=== PATIENT | male | born 1955 | race Caucasian/White ===

== ENCOUNTER 2016-11-21 16:46 | Inpatient (IN) | payer OTHER ==
[~2016-11-21] VITALS: Ht 185.4 cm; Wt 81.2 kg
[~2016-11-21 16:46] MED LIST: ASPI81 PO; ATOR20TA86 PO; CYCL10 PO; DANT100 PO; DSS100 PO; HYDR-309 PO; LEVE500T53 PO; LEVO50TA4 PO; MULT-492 PO; PARO20TA24 PO; PERCT PO; ZOLP10 PO
[2016-11-21 19:13] LABS: BASOPHILS # (AUTO) 0.05 K/uL (0.00-0.20); BASOPHILS % (AUTO) 0.7 % (0.0-2.0); EOSINOPHILS # (AUTO) 0.26 K/uL (0.00-0.70); EOSINOPHILS % (AUTO) 3.32 % (1.0-6.0); HEMATOCRIT 46.4 % (41-53); HEMOGLOBIN 14.9 g/dL (13.5-17.5); LYMPHOCYTES # (AUTO) 2.2 K/uL (1.0-4.8); LYMPHOCYTES % (AUTO) 28.8 % (22.0-44.0); MEAN CORPUSCULAR HEMOGLOBIN 28.9 pg (26.0-34.0); MEAN CORPUSCULAR HGB CONC 32.2 G/dL (31.0-37.0); MEAN CORPUSCULAR VOLUME 90 fL (80-100); MONOCYTES # (AUTO) 0.9 K/uL (0.1-1.0); MONOCYTES % (AUTO) 12.1 % (2.0-9.0); NEUTROPHILS # (AUTO) 4.3 K/uL (1.8-7.7); NEUTROPHILS % (AUTO) 55.1 % (40.0-70.0); PLATELET COUNT (AUTO) 284 K/uL (150-450); RED BLOOD CELL COUNT(AUTO) 5.17 MIL/uL (4.50-5.90); RED CELL DISTRIBUTION WIDTH 15.8 % (11.5-14.5); WHITE BLOOD COUNT (AUTO) 7.7 K/uL (4.5-11.0)
[2016-11-21] MEDS ORDERED: CEFTAROLINE 600 MG/D5W 250 ML IV ONE (19:30)
[2016-11-21 19:34] LABS: ANION GAP 9 mmol/L (8-16); CALCIUM, TOTAL 8.7 mg/dL (8.8-10.5); CARBON DIOXIDE 26 mmol/L (22-29); CHLORIDE 108 mmol/L (98-107); CREATININE 0.71 mg/dL (0.60-1.30); GLOMERULAR FILTR. RATE CALC > 60 mL/min (>60); POTASSIUM 3.5 mmol/L (3.5-5.1); SODIUM SERUM 143 mmol/L (136-145); UREA NITROGEN, BLOOD 16 mg/dL (7-18)
[2016-11-21 19:40] LABS: ALANINE AMINOTRANSFERASE 18 U/L (12-78); ALBUMIN 3.4 g/dL (3.4-5.0); ASPARTATE AMINOTRANSFERASE 17 U/L (15-37); BILIRUBIN,TOTAL 0.2 mg/dL (0.1-1.0); TOTAL PROTEIN, SERUM 7.4 g/dL (6.4-8.2)
[2016-11-21] MEDS ORDERED: SODIUM CHLORIDE 0.9% 250 ML IV ONE (20:39)
[2016-11-21] MEDS ORDERED: MORPHINE SULFATE 4 MG/ML SYRINGE IVP PRN (20:45)
[2016-11-21] MEDS ORDERED: OxyCODONE HCL/ACETAMINOPHEN 5-325 MG TABLET PO PRN (20:45)
[2016-11-21] MEDS ORDERED: ALBUTEROL SULFATE 2.5 MG/0.5 ML NEB SOLUTION NEB PRN (20:45)
[2016-11-21] MEDS ORDERED: IPRATROPIUM BROMIDE 0.5 MG/2.5 ML NEB SOLUTION NEB PRN (20:45)
[2016-11-21] MEDS ORDERED: ZOLPIDEM TARTRATE 5 MG TABLET PO PRN (20:45)
[2016-11-21] MEDS ORDERED: MAGNESIUM HYDROXIDE SUSPENSION 30 ML UDCUP PO PRN (20:45)
[2016-11-21] MEDS ORDERED: BISACODYL 10 MG RECTAL RECTAL SUPPOSITORY PR PRN (20:45)
[2016-11-21] MEDS ORDERED: ONDANSETRON HCL 4 MG/2 ML VIAL IVP PRN (20:45)
[2016-11-21] MEDS ORDERED: ACETAMINOPHEN 325 MG TABLET PO PRN (20:45)
[2016-11-21 21:03] VITALS: BP 115/63
[2016-11-21] MEDS: HEPARIN SODIUM,PORCINE 5,000 UNITS/ML VIAL SQ SCH (21:49)
[2016-11-21] MEDS: LevETIRAcetam 500 MG TABLET PO SCH (21:49)
[2016-11-21] MEDS: ATORVASTATIN CALCIUM 20 MG TABLET PO SCH (21:49)
[2016-11-21] MEDS: DOCUSATE SODIUM 100 MG CAPSULE PO SCH (21:49)
[2016-11-22] MEDS: DANTROLENE SODIUM 25 MG CAPSULE PO SCH ×5 (00:14→21:53)
[2016-11-22] MEDS: CYCLOBENZAPRINE HCL 10 MG TABLET PO SCH ×4 (00:15→21:55)
[2016-11-22 04:46] VITALS: BP 131/53
[2016-11-22] MEDS: LEVOTHYROXINE SODIUM 50 MCG TABLET PO SCH (06:31)
[2016-11-22 06:51] LABS: BASOPHILS % (AUTO) 0.5 % (0.0-2.0); EOSINOPHILS % (AUTO) 2.9 % (1.0-6.0); HEMATOCRIT 42.3 % (41-53); HEMOGLOBIN 13.4 g/dL (13.5-17.5); LYMPHOCYTES % (AUTO) 25.3 % (22.0-44.0); MEAN CORPUSCULAR HEMOGLOBIN 28.5 pg (26.0-34.0); MEAN CORPUSCULAR HGB CONC 31.5 G/dL (31.0-37.0); MEAN CORPUSCULAR VOLUME 90 fL (80-100); MONOCYTES # (AUTO) 0.7 K/uL (0.1-1.0); MONOCYTES % (AUTO) 8.9 % (2.0-9.0); NEUTROPHILS # (AUTO) 4.9 K/uL (1.8-7.7); NEUTROPHILS % (AUTO) 62.4 % (40.0-70.0); PLATELET COUNT (AUTO) 276 K/uL (150-450); RED BLOOD CELL COUNT(AUTO) 4.69 MIL/uL (4.50-5.90); RED CELL DISTRIBUTION WIDTH 15.3 % (11.5-14.5); WHITE BLOOD COUNT (AUTO) 7.9 K/uL (4.5-11.0)
[2016-11-22 07:10] LABS: ALANINE AMINOTRANSFERASE 18 U/L (12-78); ALBUMIN 2.8 g/dL (3.4-5.0); ANION GAP 11 mmol/L (8-16); ASPARTATE AMINOTRANSFERASE 16 U/L (15-37); BILIRUBIN,TOTAL 0.2 mg/dL (0.1-1.0); CARBON DIOXIDE 24 mmol/L (22-29); CHLORIDE 108 mmol/L (98-107); CREATININE 0.69 mg/dL (0.60-1.30); GLOMERULAR FILTR. RATE CALC > 60 mL/min (>60); PHOSPHORUS 3.1 mg/dL (2.5-4.9); POTASSIUM 3.6 mmol/L (3.5-5.1); SODIUM SERUM 143 mmol/L (136-145); TOTAL PROTEIN, SERUM 6.1 g/dL (6.4-8.2); UREA NITROGEN, BLOOD 14 mg/dL (7-18)
[2016-11-22 08:00] VITALS: BP 120/71
[2016-11-22] MEDS ORDERED: CEFTAROLINE 600 MG/D5W 250 ML IV SCH (08:00)
[2016-11-22] MEDS: LevETIRAcetam 500 MG TABLET PO SCH ×2 (08:06→21:55)
[2016-11-22] MEDS: HEPARIN SODIUM,PORCINE 5,000 UNITS/ML VIAL SQ SCH ×2 (08:06→21:56)
[2016-11-22] MEDS: DOCUSATE SODIUM 100 MG CAPSULE PO SCH ×2 (08:06→21:57)
[2016-11-22] MEDS: ASPIRIN 81 MG CHEWABLE TABLET PO SCH (08:07)
[2016-11-22] MEDS: PARoxetine HCL 20 MG TABLET PO SCH (08:08)
[2016-11-22] MEDS: MUPIROCIN CALCIUM 2% 15 GM CREAM TP SCH (12:05)
[2016-11-22] MEDS: CeFAZolin 1 GM/DEXTROSE 50 ML IV SCH ×2 (12:07→17:41)
[2016-11-22] MEDS ORDERED: LORazepam 2 MG/ML VIAL IVP ONE (14:45)
[2016-11-22 21:18] VITALS: BP 107/75
[2016-11-22] MEDS: ATORVASTATIN CALCIUM 20 MG TABLET PO SCH (21:55)
[2016-11-22 23:01] VITALS: BP 103/72
[2016-11-23] MEDS: CeFAZolin 1 GM/DEXTROSE 50 ML IV SCH ×2 (01:17→08:27)
[2016-11-23 04:39] VITALS: BP 108/71
[2016-11-23] MEDS: LEVOTHYROXINE SODIUM 50 MCG TABLET PO SCH (07:22)
[2016-11-23 08:16] VITALS: BP 106/66
[2016-11-23] MEDS: PARoxetine HCL 20 MG TABLET PO SCH (08:27)
[2016-11-23] MEDS: DANTROLENE SODIUM 25 MG CAPSULE PO SCH (08:27)
[2016-11-23] MEDS: DOCUSATE SODIUM 100 MG CAPSULE PO SCH (08:27)
[2016-11-23] MEDS: LevETIRAcetam 500 MG TABLET PO SCH (08:27)
[2016-11-23] MEDS: HEPARIN SODIUM,PORCINE 5,000 UNITS/ML VIAL SQ SCH (08:27)
[2016-11-23] MEDS: ASPIRIN 81 MG CHEWABLE TABLET PO SCH (08:27)
[2016-11-23] MEDS: CYCLOBENZAPRINE HCL 10 MG TABLET PO SCH (08:28)
[2016-11-23] MEDS: MUPIROCIN CALCIUM 2% 15 GM CREAM TP SCH (08:28)
[2016-11-23] MEDS ORDERED: CEPH500 PO (11:14)
[2016-11-23 11:32] VITALS: BP 132/82
== END 2016-11-23 11:45 | disposition home or self-care (01) | DRG 863 ==
LOC: EMS 16:49 → 6N 20:07
PROVIDERS: ADMIT Internal Medicine; ATTEND Internal Medicine
DX: T81.4XXA Infection following a procedure, initial encounter (principal); L03.116 Cellulitis of left lower limb; I69.354 Hemiplegia and hemiparesis following cerebral infarction affecting left non-dominant side; E03.9 Hypothyroidism, unspecified; I10 Essential (primary) hypertension; G40.909 Epilepsy, unspecified, not intractable, without status epilepticus; F32.9 Major depressive disorder, single episode, unspecified; K59.00 Constipation, unspecified; Z79.82 Long term (current) use of aspirin; Z79.899 Other long term (current) drug therapy; Z98.890 Other specified postprocedural states; Y83.8 Other surgical procedures as the cause of abnormal reaction of the patient, or of later complication, without mention of misadventure at the time of the procedure; Y93.89 Activity, other specified; Y99.8 Other external cause status; Y92.89 Other specified places as the place of occurrence of the external cause
CPT/HCPCS: 73718; 73721; 83735; 84100; 87040; 96374; 99285; J0690; J0712; J1644; J2060; J7050

== ENCOUNTER 2017-01-29 05:28 | Inpatient (IN) | payer OTHER ==
[~2017-01-29] VITALS: Ht 185.4 cm; Wt 81.8 kg
[~2017-01-29 05:28] MED LIST changes: +CEPH500 PO
[2017-01-29] MEDS ORDERED: RINGERS SOLUTION,LACTATED 1,000 ML IV ONE ×2 (05:48→06:00)
[2017-01-29] MEDS ORDERED: CeFAZolin 2 GM/DEXTROSE 50 ML IV ONE ×2 (05:48→07:00)
[2017-01-29 06:36] LABS: BASOPHILS # (AUTO) 0.01 K/uL (0.00-0.20); BASOPHILS % (AUTO) 0.1 % (0.0-2.0); EOSINOPHILS # (AUTO) 0.33 K/uL (0.00-0.70); EOSINOPHILS % (AUTO) 2.58 % (1.0-6.0); HEMOGLOBIN 15.3 g/dL (13.5-17.5); LYMPHOCYTES # (AUTO) 2.6 K/uL (1.0-4.8); LYMPHOCYTES % (AUTO) 19.9 % (22.0-44.0); MEAN CORPUSCULAR HEMOGLOBIN 28.6 pg (26.0-34.0); MEAN CORPUSCULAR HGB CONC 31.9 G/dL (31.0-37.0); MEAN CORPUSCULAR VOLUME 90 fL (80-100); MONOCYTES # (AUTO) 0.9 K/uL (0.1-1.0); MONOCYTES % (AUTO) 7.3 % (2.0-9.0); NEUTROPHILS % (AUTO) 70.1 % (40.0-70.0); PLATELET COUNT (AUTO) 227 K/uL (150-450); RED BLOOD CELL COUNT(AUTO) 5.35 MIL/uL (4.50-5.90); RED CELL DISTRIBUTION WIDTH 17.5 % (11.5-14.5)
[2017-01-29 06:39] LABS: RBC MORPHOLOGY COMMENT ABNORMAL RBC MORPH; WHITE BLOOD COUNT (AUTO) 15.5 K/uL (4.5-11.0)
[2017-01-29 06:47] LABS: ANION GAP 7 mmol/L (8-16); CALCIUM, TOTAL 8.4 mg/dL (8.8-10.5); CARBON DIOXIDE 28 mmol/L (22-29); CHLORIDE 107 mmol/L (98-107); CREATININE 0.72 mg/dL (0.60-1.30); GLOMERULAR FILTR. RATE CALC > 60 mL/min (>60); SODIUM SERUM 142 mmol/L (136-145); UREA NITROGEN, BLOOD 14 mg/dL (7-18)
[2017-01-29 06:50] LABS: INR 0.9 (0.9-1.1); PROTHROMBIN TIME 9.5 SEC (9.4-11.6)
[2017-01-29 06:52] LABS: ALANINE AMINOTRANSFERASE 20 U/L (12-78); ALBUMIN 3.4 g/dL (3.4-5.0); ASPARTATE AMINOTRANSFERASE 20 U/L (15-37); BILIRUBIN,TOTAL 0.3 mg/dL (0.1-1.0); TOTAL PROTEIN, SERUM 7.5 g/dL (6.4-8.2)
[2017-01-29] MEDS ORDERED: BUPIVACAINE HCL/PF 0.5% 30 ML VIAL ONE (07:18)
[2017-01-29] MEDS ORDERED: RINGERS SOLUTION,LACTATED 2,000 ML IV ONE (07:18)
[2017-01-29] MEDS ORDERED: GUM MASTIC/STORAX/MSAL/ALCOHOL LIQUID 0.67 ML VIAL TP ONE (07:18)
[2017-01-29] MEDS ORDERED: MUPIROCIN CALCIUM 2% 22 GM OINTMENT ONE (07:18)
[2017-01-29] MEDS ORDERED: BUPIVACAINE LIPOSOME/PF 1.3%-13.3MG/ML SUSPENSION 20 ML VIAL INJ ONE (08:30)
[2017-01-29] MEDS ORDERED: HYDROmorphone 2 MG/ML SYRINGE IVP PRN (10:00)
[2017-01-29] MEDS ORDERED: MEPERIDINE-PF 25 MG/ML SYRINGE IVP PRN (10:00)
[2017-01-29] MEDS: ACETAMINOPHEN 1000 MG/ISO-OSM 100 ML IV SCH ×3 (10:00→22:10)
[2017-01-29] MEDS ORDERED: FentaNYL CITRATE-PF 100 MCG/2 ML VIAL IVP PRN (10:00)
[2017-01-29] MEDS ORDERED: CYCLOBENZAPRINE HCL 10 MG TABLET PO PRN (10:00)
[2017-01-29] MEDS ORDERED: ONDANSETRON HCL 4 MG/2 ML VIAL IVP PRN (10:00)
[2017-01-29 12:00] VITALS: BP 128/79
[2017-01-29] MEDS ORDERED: DEXAMETHASONE SOD PHOS 4 MG/ML VIAL IVP ONE (12:00)
[2017-01-29] MEDS ORDERED: PHENYLEPHRINE HCL 10 MG/ML VIAL IVP ONE (12:00)
[2017-01-29] MEDS ORDERED: MIDAZOLAM HCL 2 MG/2 ML VIAL IVP ONE (12:00)
[2017-01-29] MEDS ORDERED: PROPOFOL 1% 20 ML VIAL IVP ONE (12:00)
[2017-01-29] MEDS ORDERED: NEOSTIGMINE METHYLSULFATE 1 MG/ML 10 ML VIAL IVP ONE (12:00)
[2017-01-29] MEDS ORDERED: LIDOCAINE HCL/PF 2% 5 ML VIAL INJ ONE (12:00)
[2017-01-29] MEDS ORDERED: ONDANSETRON HCL 4 MG/2 ML VIAL IVP ONE (12:00)
[2017-01-29] MEDS ORDERED: GLYCOPYRROLATE 0.2 MG/ML VIAL IM ONE (12:00)
[2017-01-29] MEDS ORDERED: ROCURONIUM BROMIDE 10 MG/ML 5 ML VIAL IVP ONE (12:00)
[2017-01-29] MEDS ORDERED: 0.9% SODIUM CHLORIDE 10 ML VIAL IVP ONE (12:00)
[2017-01-29] MEDS ORDERED: FentaNYL CITRATE-PF 100 MCG/2 ML VIAL IVP ONE (12:00)
[2017-01-29] MEDS ORDERED: KETOROLAC TROMETHAMINE 60 MG/2 ML VIAL IM ONE (12:00)
[2017-01-29] MEDS ORDERED: HYDROmorphone 2 MG/ML SYRINGE IVP ONE (12:00)
[2017-01-29] MEDS ORDERED: SODIUM CHLORIDE 0.9% 1,000 ML IV ONE (13:15)
[2017-01-29] MEDS: CeFAZolin 1 GM/DEXTROSE 50 ML IV SCH ×2 (15:40→23:50)
[2017-01-29 15:44] VITALS: BP 130/83
[2017-01-29] MEDS: HYDROmorphone 2 MG/ML SYRINGE IVP PRN ×2 (15:51→18:29)
[2017-01-29] MEDS: CYCLOBENZAPRINE HCL 10 MG TABLET PO SCH ×2 (15:51→20:45)
[2017-01-29] MEDS ORDERED: DANTROLENE SODIUM 100 MG PO SCH (16:00)
[2017-01-29] MEDS: DANTROLENE SODIUM 25 MG CAPSULE PO SCH ×2 (17:21→20:56)
[2017-01-29 19:34] VITALS: BP 109/68
[2017-01-29] MEDS: LevETIRAcetam 500 MG TABLET PO SCH (20:43)
[2017-01-29] MEDS: ATORVASTATIN CALCIUM 20 MG TABLET PO SCH (20:44)
[2017-01-29] MEDS: ZOLPIDEM TARTRATE 10 MG TABLET PO SCH ×2 (21:00→22:37)
[2017-01-29] MEDS: OXYGEN THERAPY IH SCH (22:11)
[2017-01-29 23:30] VITALS: BP 102/59
[2017-01-30] MEDS: HYDROmorphone 2 MG/ML SYRINGE IVP PRN ×4 (02:29→21:14)
[2017-01-30] MEDS: ACETAMINOPHEN 1000 MG/ISO-OSM 100 ML IV SCH (04:04)
[2017-01-30 04:26] LABS: APPEARANCE,URINE CLOUDY (CLEAR); GLUCOSE, URINE (UA) NEGATIVE (NEGATIVE); KETONES,URINE NEGATIVE (NEGATIVE); LEUKOCYTE ESTERASE ,URINE NEGATIVE (NEGATIVE); OCCULT BLOOD,URINE NEGATIVE (NEGATIVE); PH,URINE 5.5 (5.0-8.0); PROTEIN,URINE NEGATIVE (NEGATIVE)
[2017-01-30 04:58] VITALS: BP 98/52
[2017-01-30 05:04] LABS: RBC,URINE 0-2 /HPF (0-2); SQUAMOUS EPITHELIAL CELL,UR Few /LPF (None Seen); WBC,URINE 0-2 /HPF (0-5)
[2017-01-30] MEDS: LEVOTHYROXINE SODIUM 50 MCG TABLET PO SCH (06:20)
[2017-01-30 06:55] LABS: BASOPHILS % (AUTO) 0.3 % (0.0-2.0); EOSINOPHILS % (AUTO) 0.6 % (1.0-6.0); HEMATOCRIT 39.7 % (41-53); HEMOGLOBIN 12.8 g/dL (13.5-17.5); LYMPHOCYTES # (AUTO) 1.9 K/uL (1.0-4.8); LYMPHOCYTES % (AUTO) 18.6 % (22.0-44.0); MEAN CORPUSCULAR HEMOGLOBIN 28.6 pg (26.0-34.0); MEAN CORPUSCULAR HGB CONC 32.2 G/dL (31.0-37.0); MEAN CORPUSCULAR VOLUME 89 fL (80-100); MONOCYTES % (AUTO) 9.7 % (2.0-9.0); NEUTROPHILS # (AUTO) 7.3 K/uL (1.8-7.7); NEUTROPHILS % (AUTO) 70.8 % (40.0-70.0); PLATELET COUNT (AUTO) 245 K/uL (150-450); RED BLOOD CELL COUNT(AUTO) 4.47 MIL/uL (4.50-5.90); RED CELL DISTRIBUTION WIDTH 17.2 % (11.5-14.5); WHITE BLOOD COUNT (AUTO) 10.4 K/uL (4.5-11.0)
[2017-01-30] MEDS: OXYGEN THERAPY IH SCH ×2 (08:00→20:00)
[2017-01-30 08:10] VITALS: BP 107/63
[2017-01-30] MEDS: LevETIRAcetam 500 MG TABLET PO SCH ×2 (08:32→20:54)
[2017-01-30] MEDS: ASPIRIN 81 MG CHEWABLE TABLET PO SCH (08:32)
[2017-01-30] MEDS: OxyCODONE HCL/ACETAMINOPHEN 5-325 MG TABLET PO PRN ×3 (08:32→17:44)
[2017-01-30] MEDS: DANTROLENE SODIUM 25 MG CAPSULE PO SCH ×4 (08:33→20:55)
[2017-01-30] MEDS: PARoxetine HCL 20 MG TABLET PO SCH (08:33)
[2017-01-30 09:41] LABS: RBC MORPHOLOGY COMMENT ABNORMAL RBC MORPH
[2017-01-30] MEDS: CYCLOBENZAPRINE HCL 10 MG TABLET PO SCH ×3 (10:16→20:55)
[2017-01-30 11:07] VITALS: BP 122/67
[2017-01-30 16:25] VITALS: BP 110/67
[2017-01-30] MEDS ORDERED: BENZOCAINE/MENTHOL LOZENGE [8 LOZENGES/PACKET] PO PRN (18:15)
[2017-01-30] MEDS: ATORVASTATIN CALCIUM 20 MG TABLET PO SCH (20:54)
[2017-01-30 21:21] VITALS: BP 124/86
[2017-01-30] MEDS: ZOLPIDEM TARTRATE 10 MG TABLET PO SCH (23:04)
[2017-01-31] MEDS: HYDROmorphone 2 MG/ML SYRINGE IVP PRN (00:54)
[2017-01-31 01:15] VITALS: BP 96/59
[2017-01-31] MEDS: OxyCODONE HCL/ACETAMINOPHEN 5-325 MG TABLET PO PRN ×4 (02:47→16:24)
[2017-01-31 03:56] VITALS: BP 113/60
[2017-01-31] MEDS: LEVOTHYROXINE SODIUM 50 MCG TABLET PO SCH (06:32)
[2017-01-31 07:30] VITALS: BP 106/68
[2017-01-31] MEDS: LevETIRAcetam 500 MG TABLET PO SCH (07:59)
[2017-01-31] MEDS: DANTROLENE SODIUM 25 MG CAPSULE PO SCH (07:59)
[2017-01-31] MEDS: PARoxetine HCL 20 MG TABLET PO SCH (07:59)
[2017-01-31] MEDS: ASPIRIN 81 MG CHEWABLE TABLET PO SCH (07:59)
[2017-01-31] MEDS: CYCLOBENZAPRINE HCL 10 MG TABLET PO SCH ×2 (07:59→12:10)
[2017-01-31] MEDS ORDERED: SULFAMETHOX/TRIMETH DS 800-160 MG/TABLET PO SCH ×2 (08:30→09:00)
[2017-01-31] MEDS: OXYGEN THERAPY IH SCH (09:31)
[2017-01-31 11:30] VITALS: BP 102/67
[2017-01-31] MEDS: DANTROLENE SODIUM 100 MG PO SCH ×2 (12:10→16:04)
[2017-01-31 13:18] VITALS: BP 99/64
[2017-01-31] MEDS ORDERED: SENNA 187 MG TABLET PO PRN (15:00)
[2017-01-31] MEDS ORDERED: DOCUSATE SODIUM 100 MG CAPSULE PO PRN (15:00)
[2017-01-31 15:30] VITALS: BP 111/80
[2017-01-31] MEDS: BISACODYL 5 MG EC TABLET PO PRN ×2 (16:04→16:10)
[2017-01-31 16:36] LABS: BASOPHILS % (AUTO) 0.3 % (0.0-2.0); EOSINOPHILS % (AUTO) 0.8 % (1.0-6.0); HEMATOCRIT 41.3 % (41-53); HEMOGLOBIN 12.9 g/dL (13.5-17.5); LYMPHOCYTES # (AUTO) 1.9 K/uL (1.0-4.8); LYMPHOCYTES % (AUTO) 18.1 % (22.0-44.0); MEAN CORPUSCULAR HEMOGLOBIN 28.3 pg (26.0-34.0); MEAN CORPUSCULAR HGB CONC 31.1 G/dL (31.0-37.0); MEAN CORPUSCULAR VOLUME 91 fL (80-100); MONOCYTES # (AUTO) 0.4 K/uL (0.1-1.0); MONOCYTES % (AUTO) 3.6 % (2.0-9.0); NEUTROPHILS # (AUTO) 8.2 K/uL (1.8-7.7); NEUTROPHILS % (AUTO) 77.2 % (40.0-70.0); PLATELET COUNT (AUTO) 243 K/uL (150-450); RED BLOOD CELL COUNT(AUTO) 4.54 MIL/uL (4.50-5.90); RED CELL DISTRIBUTION WIDTH 18.7 % (11.5-14.5); WHITE BLOOD COUNT (AUTO) 10.6 K/uL (4.5-11.0)
[2017-01-31 16:46] LABS: RBC MORPHOLOGY COMMENT ABNORMAL RBC MORPH
[2017-01-31] MEDS ORDERED: DSS100 PO (18:27)
[2017-01-31] MEDS ORDERED: BISA5TAB12 PO (18:27)
[2017-01-31] MEDS ORDERED: CYCL10 PO (18:27)
[2017-03-23] MEDS ORDERED: CALC-261 PO (11:10)
== END 2017-01-31 19:10 | disposition home or self-care (01) | DRG 481 ==
LOC: 4E 05:28 → OBSVTOIN 05:28
PROVIDERS: ADMIT Orthopaedic Surgery; ATTEND Orthopaedic Surgery
PROC: 0SBB0ZZ Excision of Left Hip Joint, Open Approach (ICD-10-PCS; 2017-01-29)
PROC: 0SND0ZZ Release Left Knee Joint, Open Approach (ICD-10-PCS; 2017-01-29)
PROC: 01BD0ZZ Excision of Femoral Nerve, Open Approach (ICD-10-PCS; 2017-01-29)
PROC: 0J8M0ZZ Division of Left Upper Leg Subcutaneous Tissue and Fascia, Open Approach (ICD-10-PCS; 2017-01-29)
PROC: 0K8 Muscles, Division (ICD-10-PCS; 2017-01-29)
PROC: 0SNB0ZZ Release Left Hip Joint, Open Approach (ICD-10-PCS; 2017-01-29)
PROC: 2W3MX1Z Immobilization of Left Lower Extremity using Splint (ICD-10-PCS; 2017-01-29)
PROC: 0SBD0ZZ Excision of Left Knee Joint, Open Approach (ICD-10-PCS; principal; 2017-01-29 07:30)
DX: M21.962 Unspecified acquired deformity of left lower leg (principal); I69.354 Hemiplegia and hemiparesis following cerebral infarction affecting left non-dominant side; M21.952 Unspecified acquired deformity of left thigh; E03.9 Hypothyroidism, unspecified; E78.5 Hyperlipidemia, unspecified; K59.00 Constipation, unspecified; F32.9 Major depressive disorder, single episode, unspecified; G40.909 Epilepsy, unspecified, not intractable, without status epilepticus; I10 Essential (primary) hypertension; Z79.899 Other long term (current) drug therapy; Z87.891 Personal history of nicotine dependence
CPT/HCPCS: 36415; 80053; 85025; 85610; 85730; 87081; 93005; C9290; J0131; J0690; J1170; J3490; J7120; Z7506; Z7508; 97116; 97163; 97166; 97530; J1100; J1885; J2250; J2370; J2405; J2704; J3010

== ENCOUNTER 2017-01-31 19:00 | Inpatient (IN) | payer OTHER ==
[~2017-01-31] VITALS: Ht 185.4 cm; Wt 80.4 kg
[~2017-01-31 19:00] MED LIST changes: +BISA5TAB12 PO; -CEPH500 PO
[2017-01-31 20:00] VITALS: BP 126/77
[2017-01-31] MEDS ORDERED: TEMAZEPAM 15 MG CAPSULE PO PRN (20:00)
[2017-01-31] MEDS ORDERED: CYCLOBENZAPRINE HCL 10 MG TABLET PO PRN (20:15)
[2017-01-31] MEDS: CYCLOBENZAPRINE HCL 10 MG TABLET PO SCH (20:44)
[2017-01-31] MEDS: LevETIRAcetam 500 MG TABLET PO SCH (20:44)
[2017-01-31] MEDS: ATORVASTATIN CALCIUM 20 MG TABLET PO SCH (20:44)
[2017-01-31] MEDS: DANTROLENE SODIUM 100 MG PO SCH (20:44)
[2017-01-31] MEDS: OxyCODONE HCL/ACETAMINOPHEN 5-325 MG TABLET PO PRN (20:45)
[2017-01-31] MEDS: SULFAMETHOX/TRIMETH DS 800-160 MG/TABLET PO SCH (20:46)
[2017-01-31] MEDS: DOCUSATE SODIUM 100 MG CAPSULE PO SCH (20:51)
[2017-01-31] MEDS: SENNA 187 MG TABLET PO SCH (20:51)
[2017-01-31] MEDS ORDERED: ZOLPIDEM TARTRATE 10 MG TABLET PO SCH (21:00)
[2017-01-31] MEDS ORDERED: ZOLPIDEM TARTRATE 5 MG TABLET PO SCH (21:00)
[2017-01-31] MEDS: BENZOCAINE/MENTHOL LOZENGE [8 LOZENGES/PACKET] PO PRN (21:09)
[2017-01-31 22:12] LABS: APPEARANCE,URINE CLEAR (CLEAR); GLUCOSE, URINE (UA) NEGATIVE (NEGATIVE); KETONES,URINE TRACE mg/dL (NEGATIVE); LEUKOCYTE ESTERASE ,URINE NEGATIVE (NEGATIVE); PROTEIN,URINE NEGATIVE (NEGATIVE)
[2017-01-31 22:13] LABS: OCCULT BLOOD,URINE SMALL (NEGATIVE)
[2017-01-31 22:14] LABS: ADD UA MICROSCOPIC YES; WBC,URINE 0-2 /HPF (0-5)
[2017-02-01 04:25] VITALS: BP 143/90
[2017-02-01] MEDS: OxyCODONE HCL/ACETAMINOPHEN 5-325 MG TABLET PO PRN ×4 (04:25→19:52)
[2017-02-01] MEDS: LEVOTHYROXINE SODIUM 50 MCG TABLET PO SCH (06:08)
[2017-02-01 06:38] LABS: BASOPHILS # (AUTO) 0.02 K/uL (0.00-0.20); BASOPHILS % (AUTO) 0.2 % (0.0-2.0); EOSINOPHILS # (AUTO) 0.17 K/uL (0.00-0.70); EOSINOPHILS % (AUTO) 1.83 % (1.0-6.0); HEMATOCRIT 40.2 % (41-53); HEMOGLOBIN 13.2 g/dL (13.5-17.5); LYMPHOCYTES # (AUTO) 1.4 K/uL (1.0-4.8); LYMPHOCYTES % (AUTO) 14.2 % (22.0-44.0); MEAN CORPUSCULAR HEMOGLOBIN 29.2 pg (26.0-34.0); MEAN CORPUSCULAR HGB CONC 32.7 G/dL (31.0-37.0); MEAN CORPUSCULAR VOLUME 89 fL (80-100); MONOCYTES # (AUTO) 0.8 K/uL (0.1-1.0); MONOCYTES % (AUTO) 8.5 % (2.0-9.0); NEUTROPHILS # (AUTO) 7.2 K/uL (1.8-7.7); NEUTROPHILS % (AUTO) 75.3 % (40.0-70.0); PLATELET COUNT (AUTO) 238 K/uL (150-450); RED BLOOD CELL COUNT(AUTO) 4.51 MIL/uL (4.50-5.90); RED CELL DISTRIBUTION WIDTH 17.6 % (11.5-14.5); WHITE BLOOD COUNT (AUTO) 9.6 K/uL (4.5-11.0)
[2017-02-01 06:55] LABS: ALANINE AMINOTRANSFERASE 12 U/L (12-78); ALBUMIN 2.4 g/dL (3.4-5.0); ANION GAP 9 mmol/L (8-16); ASPARTATE AMINOTRANSFERASE 26 U/L (15-37); BILIRUBIN,TOTAL 0.4 mg/dL (0.1-1.0); CALCIUM, TOTAL 7.9 mg/dL (8.8-10.5); CARBON DIOXIDE 26 mmol/L (22-29); CHLORIDE 104 mmol/L (98-107); CREATININE 0.63 mg/dL (0.60-1.30); GLOMERULAR FILTR. RATE CALC > 60 mL/min (>60); POTASSIUM 3.8 mmol/L (3.5-5.1); SODIUM SERUM 139 mmol/L (136-145); TOTAL PROTEIN, SERUM 6.4 g/dL (6.4-8.2); UREA NITROGEN, BLOOD 11 mg/dL (7-18)
[2017-02-01 07:45] VITALS: BP 117/80
[2017-02-01 07:55] VITALS: BP 117/80
[2017-02-01] MEDS: BENZOCAINE/MENTHOL LOZENGE [8 LOZENGES/PACKET] PO PRN (08:49)
[2017-02-01] MEDS: DOCUSATE SODIUM 100 MG CAPSULE PO SCH ×3 (09:00→20:54)
[2017-02-01] MEDS: PARoxetine HCL 20 MG TABLET PO SCH (09:41)
[2017-02-01] MEDS: GuaiFENesin [SUGAR-FREE] 200 MG/10 ML SOLUTION UDCUP PO PRN ×2 (09:41→19:56)
[2017-02-01] MEDS: SULFAMETHOX/TRIMETH DS 800-160 MG/TABLET PO SCH ×2 (09:41→20:52)
[2017-02-01] MEDS: LevETIRAcetam 500 MG TABLET PO SCH ×2 (09:41→20:53)
[2017-02-01] MEDS: ASPIRIN 81 MG CHEWABLE TABLET PO SCH (09:42)
[2017-02-01] MEDS: CYCLOBENZAPRINE HCL 10 MG TABLET PO SCH ×3 (09:42→20:52)
[2017-02-01] MEDS: DANTROLENE SODIUM 100 MG PO SCH ×4 (09:42→20:52)
[2017-02-01 10:15] LABS: RBC MORPHOLOGY COMMENT ABNORMAL RBC MORPH
[2017-02-01] MEDS: PHENOL 1.4% 177 ML SPRAY BOTTLE PO PRN ×2 (15:09→19:52)
[2017-02-01] MEDS: ACETAMINOPHEN 325 MG TABLET PO PRN (16:40)
[2017-02-01 19:52] VITALS: BP 115/68
[2017-02-01] MEDS: ATORVASTATIN CALCIUM 20 MG TABLET PO SCH (20:52)
[2017-02-01] MEDS: DiphenhydrAMINE HCL 50 MG CAPSULE PO SCH ×2 (20:53→22:17)
[2017-02-01] MEDS: SENNA 187 MG TABLET PO SCH (20:54)
[2017-02-01 23:36] VITALS: BP 115/72
[2017-02-01] MEDS ORDERED: ZOLPIDEM TARTRATE 10 MG TABLET PO PRN (23:45)
[2017-02-01] MEDS: ZOLPIDEM TARTRATE 5 MG TABLET PO PRN (23:58)
[2017-02-02] MEDS: OxyCODONE HCL/ACETAMINOPHEN 5-325 MG TABLET PO PRN ×5 (00:41→21:09)
[2017-02-02] MEDS: PHENOL 1.4% 177 ML SPRAY BOTTLE PO PRN ×2 (04:34→18:28)
[2017-02-02] MEDS: LEVOTHYROXINE SODIUM 50 MCG TABLET PO SCH (06:01)
[2017-02-02 07:15] VITALS: BP 107/73
[2017-02-02] MEDS: LevETIRAcetam 500 MG TABLET PO SCH ×2 (08:03→21:05)
[2017-02-02] MEDS: CYCLOBENZAPRINE HCL 10 MG TABLET PO SCH ×3 (08:03→21:05)
[2017-02-02] MEDS: DANTROLENE SODIUM 100 MG PO SCH ×4 (08:03→21:01)
[2017-02-02] MEDS: PARoxetine HCL 20 MG TABLET PO SCH (08:03)
[2017-02-02] MEDS: SULFAMETHOX/TRIMETH DS 800-160 MG/TABLET PO SCH ×2 (08:03→21:05)
[2017-02-02] MEDS: ASPIRIN 81 MG CHEWABLE TABLET PO SCH (08:03)
[2017-02-02] MEDS: DOCUSATE SODIUM 100 MG CAPSULE PO SCH ×2 (08:04→21:05)
[2017-02-02 13:20] VITALS: BP 122/78
[2017-02-02 16:40] VITALS: BP 117/76
[2017-02-02] MEDS: ACETAMINOPHEN 325 MG TABLET PO PRN (16:49)
[2017-02-02] MEDS: POLYETHYLENE GLYCOL 3350 17 GM PACKET PO SCH (20:59)
[2017-02-02] MEDS: SENNA 187 MG TABLET PO SCH (21:00)
[2017-02-02] MEDS: ATORVASTATIN CALCIUM 20 MG TABLET PO SCH (21:01)
[2017-02-02] MEDS: DiphenhydrAMINE HCL 50 MG CAPSULE PO SCH (22:11)
[2017-02-03 00:10] VITALS: BP 118/82
[2017-02-03] MEDS: PHENOL 1.4% 177 ML SPRAY BOTTLE PO PRN ×2 (00:10→18:39)
[2017-02-03] MEDS: OxyCODONE HCL/ACETAMINOPHEN 5-325 MG TABLET PO PRN ×5 (00:10→21:11)
[2017-02-03] MEDS: GuaiFENesin [SUGAR-FREE] 200 MG/10 ML SOLUTION UDCUP PO PRN (00:19)
[2017-02-03] MEDS: CETIRIZINE HCL 10 MG TABLET PO PRN (00:19)
[2017-02-03] MEDS: LEVOTHYROXINE SODIUM 50 MCG TABLET PO SCH (05:40)
[2017-02-03 07:30] VITALS: BP 105/65
[2017-02-03] MEDS: POLYETHYLENE GLYCOL 3350 17 GM PACKET PO SCH ×2 (08:06→21:11)
[2017-02-03] MEDS: DOCUSATE SODIUM 100 MG CAPSULE PO SCH ×2 (08:06→21:11)
[2017-02-03] MEDS: SULFAMETHOX/TRIMETH DS 800-160 MG/TABLET PO SCH ×2 (08:06→21:11)
[2017-02-03] MEDS: PARoxetine HCL 20 MG TABLET PO SCH (08:06)
[2017-02-03] MEDS: LevETIRAcetam 500 MG TABLET PO SCH ×2 (08:07→21:11)
[2017-02-03] MEDS: ASPIRIN 81 MG CHEWABLE TABLET PO SCH (08:07)
[2017-02-03] MEDS: DANTROLENE SODIUM 100 MG PO SCH ×4 (08:07→21:11)
[2017-02-03] MEDS: CYCLOBENZAPRINE HCL 10 MG TABLET PO SCH ×3 (08:07→21:11)
[2017-02-03 15:50] VITALS: BP 117/74
[2017-02-03] MEDS: SENNA 187 MG TABLET PO SCH (21:00)
[2017-02-03] MEDS: ATORVASTATIN CALCIUM 20 MG TABLET PO SCH (21:11)
[2017-02-03] MEDS: DiphenhydrAMINE HCL 50 MG CAPSULE PO SCH (21:11)
[2017-02-03] MEDS: BENZOCAINE/MENTHOL LOZENGE [8 LOZENGES/PACKET] PO PRN (21:25)
[2017-02-03] MEDS: ZOLPIDEM TARTRATE 5 MG TABLET PO PRN (22:58)
[2017-02-03 23:03] VITALS: BP 105/59
[2017-02-04] MEDS: OxyCODONE HCL/ACETAMINOPHEN 5-325 MG TABLET PO PRN ×3 (00:13→21:39)
[2017-02-04] MEDS: LEVOTHYROXINE SODIUM 50 MCG TABLET PO SCH (06:33)
[2017-02-04 07:15] VITALS: BP 113/70
[2017-02-04] MEDS: DOCUSATE SODIUM 100 MG CAPSULE PO SCH ×2 (09:01→20:22)
[2017-02-04] MEDS: ASPIRIN 81 MG CHEWABLE TABLET PO SCH (09:01)
[2017-02-04] MEDS: PARoxetine HCL 20 MG TABLET PO SCH (09:01)
[2017-02-04] MEDS: SULFAMETHOX/TRIMETH DS 800-160 MG/TABLET PO SCH ×2 (09:01→20:22)
[2017-02-04] MEDS: LevETIRAcetam 500 MG TABLET PO SCH ×2 (09:02→20:22)
[2017-02-04] MEDS: CYCLOBENZAPRINE HCL 10 MG TABLET PO SCH ×3 (09:02→20:23)
[2017-02-04] MEDS: POLYETHYLENE GLYCOL 3350 17 GM PACKET PO SCH ×2 (09:03→20:22)
[2017-02-04] MEDS: DANTROLENE SODIUM 100 MG PO SCH ×4 (09:03→20:22)
[2017-02-04] MEDS: PHENOL 1.4% 177 ML SPRAY BOTTLE PO PRN ×2 (09:12→21:39)
[2017-02-04] MEDS: CETIRIZINE HCL 10 MG TABLET PO PRN (09:12)
[2017-02-04] MEDS: DOCUSATE SODIUM 283 MG/5 ML MINI-ENEMA PR PRN (12:40)
[2017-02-04 13:30] VITALS: BP 120/73
[2017-02-04] MEDS: BENZOCAINE/MENTHOL LOZENGE [8 LOZENGES/PACKET] PO PRN ×2 (14:00→19:43)
[2017-02-04 15:46] VITALS: BP 107/68
[2017-02-04] MEDS: GuaiFENesin [SUGAR-FREE] 200 MG/10 ML SOLUTION UDCUP PO PRN (19:39)
[2017-02-04] MEDS: ATORVASTATIN CALCIUM 20 MG TABLET PO SCH (20:21)
[2017-02-04] MEDS: SENNA 187 MG TABLET PO SCH (20:22)
[2017-02-04] MEDS: DiphenhydrAMINE HCL 50 MG CAPSULE PO SCH (22:36)
[2017-02-04 23:40] VITALS: BP 123/80
[2017-02-04] MEDS: ACETAMINOPHEN 325 MG TABLET PO PRN (23:40)
[2017-02-04] MEDS: ZOLPIDEM TARTRATE 5 MG TABLET PO PRN (23:42)
[2017-02-05] MEDS: OxyCODONE HCL/ACETAMINOPHEN 5-325 MG TABLET PO PRN ×2 (00:30→22:10)
[2017-02-05] MEDS: LEVOTHYROXINE SODIUM 50 MCG TABLET PO SCH (06:32)
[2017-02-05 07:30] VITALS: BP 108/70
[2017-02-05] MEDS: POLYETHYLENE GLYCOL 3350 17 GM PACKET PO SCH ×2 (08:58→21:21)
[2017-02-05] MEDS: DOCUSATE SODIUM 100 MG CAPSULE PO SCH ×2 (08:58→21:21)
[2017-02-05] MEDS: LevETIRAcetam 500 MG TABLET PO SCH ×2 (08:58→21:21)
[2017-02-05] MEDS: PARoxetine HCL 20 MG TABLET PO SCH (08:58)
[2017-02-05] MEDS: SULFAMETHOX/TRIMETH DS 800-160 MG/TABLET PO SCH ×2 (08:58→21:21)
[2017-02-05] MEDS: DANTROLENE SODIUM 100 MG PO SCH ×4 (08:58→21:21)
[2017-02-05] MEDS: CYCLOBENZAPRINE HCL 10 MG TABLET PO SCH ×3 (08:59→21:21)
[2017-02-05] MEDS: ASPIRIN 81 MG CHEWABLE TABLET PO SCH (08:59)
[2017-02-05 14:20] VITALS: BP 131/78
[2017-02-05] MEDS: ACETAMINOPHEN 325 MG TABLET PO PRN (14:20)
[2017-02-05 15:20] VITALS: BP 132/83
[2017-02-05] MEDS: PHENOL 1.4% 177 ML SPRAY BOTTLE PO PRN (15:33)
[2017-02-05] MEDS ORDERED: MAGNESIUM CITRATE 300 ML ORAL SOLUTION PO ONE (18:00)
[2017-02-05] MEDS: ATORVASTATIN CALCIUM 20 MG TABLET PO SCH (21:21)
[2017-02-05] MEDS: DiphenhydrAMINE HCL 50 MG CAPSULE PO SCH (21:22)
[2017-02-05] MEDS: SENNA 187 MG TABLET PO SCH (21:22)
[2017-02-05] MEDS: DOCUSATE SODIUM 283 MG/5 ML MINI-ENEMA PR PRN (22:10)
[2017-02-06 00:31] VITALS: BP 117/76
[2017-02-06] MEDS: LEVOTHYROXINE SODIUM 50 MCG TABLET PO SCH (05:53)
[2017-02-06 07:39] VITALS: BP 119/70
[2017-02-06] MEDS: ACETAMINOPHEN 325 MG TABLET PO PRN (07:43)
[2017-02-06] MEDS: POLYETHYLENE GLYCOL 3350 17 GM PACKET PO SCH ×2 (07:49→20:00)
[2017-02-06] MEDS: DANTROLENE SODIUM 100 MG PO SCH ×4 (08:17→20:00)
[2017-02-06] MEDS: ASPIRIN 81 MG CHEWABLE TABLET PO SCH (08:17)
[2017-02-06] MEDS: SULFAMETHOX/TRIMETH DS 800-160 MG/TABLET PO SCH ×2 (08:17→20:00)
[2017-02-06] MEDS: DOCUSATE SODIUM 100 MG CAPSULE PO SCH ×2 (08:17→20:00)
[2017-02-06] MEDS: LevETIRAcetam 500 MG TABLET PO SCH ×2 (08:17→20:01)
[2017-02-06] MEDS: PARoxetine HCL 20 MG TABLET PO SCH (08:17)
[2017-02-06] MEDS: CYCLOBENZAPRINE HCL 10 MG TABLET PO SCH ×3 (08:18→20:00)
[2017-02-06] MEDS ORDERED: MAGNESIUM CITRATE 300 ML ORAL SOLUTION PO ONE (09:00)
[2017-02-06] MEDS: PHENOL 1.4% 177 ML SPRAY BOTTLE PO PRN ×2 (12:58→22:21)
[2017-02-06 15:33] VITALS: BP 123/80
[2017-02-06] MEDS: ATORVASTATIN CALCIUM 20 MG TABLET PO SCH (20:00)
[2017-02-06] MEDS: SENNA 187 MG TABLET PO SCH (21:00)
[2017-02-06] MEDS: DiphenhydrAMINE HCL 50 MG CAPSULE PO SCH (21:57)
[2017-02-07] MEDS: ZOLPIDEM TARTRATE 5 MG TABLET PO PRN ×2 (00:03→22:43)
[2017-02-07 00:08] VITALS: BP 102/64
[2017-02-07] MEDS: LEVOTHYROXINE SODIUM 50 MCG TABLET PO SCH (06:27)
[2017-02-07 08:57] VITALS: BP 102/69
[2017-02-07] MEDS: POLYETHYLENE GLYCOL 3350 17 GM PACKET PO SCH ×2 (09:15→20:46)
[2017-02-07] MEDS: PARoxetine HCL 20 MG TABLET PO SCH (09:15)
[2017-02-07] MEDS: SULFAMETHOX/TRIMETH DS 800-160 MG/TABLET PO SCH ×2 (09:15→20:46)
[2017-02-07] MEDS: LevETIRAcetam 500 MG TABLET PO SCH ×2 (09:15→20:46)
[2017-02-07] MEDS: CYCLOBENZAPRINE HCL 10 MG TABLET PO SCH ×3 (09:16→20:46)
[2017-02-07] MEDS: ASPIRIN 81 MG CHEWABLE TABLET PO SCH (09:16)
[2017-02-07] MEDS: DOCUSATE SODIUM 100 MG CAPSULE PO SCH ×2 (09:17→20:46)
[2017-02-07] MEDS: DANTROLENE SODIUM 100 MG PO SCH ×4 (09:17→20:46)
[2017-02-07 15:00] VITALS: BP 119/73
[2017-02-07] MEDS: BENZOCAINE/MENTHOL LOZENGE [8 LOZENGES/PACKET] PO PRN (19:46)
[2017-02-07] MEDS: PHENOL 1.4% 177 ML SPRAY BOTTLE PO PRN ×2 (19:46→21:29)
[2017-02-07] MEDS: ATORVASTATIN CALCIUM 20 MG TABLET PO SCH (20:46)
[2017-02-07] MEDS: DiphenhydrAMINE HCL 50 MG CAPSULE PO SCH (20:46)
[2017-02-07] MEDS: SENNA 187 MG TABLET PO SCH (20:47)
[2017-02-07 23:40] VITALS: BP 102/71
[2017-02-08] MEDS: PHENOL 1.4% 177 ML SPRAY BOTTLE PO PRN ×4 (03:48→20:40)
[2017-02-08] MEDS: LEVOTHYROXINE SODIUM 50 MCG TABLET PO SCH (06:01)
[2017-02-08 07:40] VITALS: BP 105/69
[2017-02-08] MEDS: LevETIRAcetam 500 MG TABLET PO SCH ×2 (07:49→20:41)
[2017-02-08] MEDS: DANTROLENE SODIUM 100 MG PO SCH ×4 (07:49→20:41)
[2017-02-08] MEDS: SULFAMETHOX/TRIMETH DS 800-160 MG/TABLET PO SCH ×2 (07:49→20:41)
[2017-02-08] MEDS: PARoxetine HCL 20 MG TABLET PO SCH (07:49)
[2017-02-08] MEDS: CYCLOBENZAPRINE HCL 10 MG TABLET PO SCH ×3 (07:49→20:40)
[2017-02-08] MEDS: DOCUSATE SODIUM 100 MG CAPSULE PO SCH ×2 (07:49→20:40)
[2017-02-08] MEDS: POLYETHYLENE GLYCOL 3350 17 GM PACKET PO SCH ×2 (07:49→20:40)
[2017-02-08] MEDS: ASPIRIN 81 MG CHEWABLE TABLET PO SCH (07:49)
[2017-02-08 15:30] VITALS: BP 108/70
[2017-02-08] MEDS: MULTIVITAMINS WITH MINERALS, THERAPEUTIC TABLET PO SCH (16:06)
[2017-02-08] MEDS: ATORVASTATIN CALCIUM 20 MG TABLET PO SCH (20:40)
[2017-02-08] MEDS: SENNA 187 MG TABLET PO SCH (20:46)
[2017-02-08] MEDS: ZOLPIDEM TARTRATE 5 MG TABLET PO PRN (22:14)
[2017-02-08] MEDS: DiphenhydrAMINE HCL 50 MG CAPSULE PO SCH (22:14)
[2017-02-09 03:51] VITALS: BP 96/56
[2017-02-09] MEDS: LEVOTHYROXINE SODIUM 50 MCG TABLET PO SCH (06:34)
[2017-02-09 07:55] VITALS: BP 108/70
[2017-02-09] MEDS: LevETIRAcetam 500 MG TABLET PO SCH (08:31)
[2017-02-09] MEDS: ASPIRIN 81 MG CHEWABLE TABLET PO SCH (08:31)
[2017-02-09] MEDS: MULTIVITAMINS WITH MINERALS, THERAPEUTIC TABLET PO SCH (08:31)
[2017-02-09] MEDS: CYCLOBENZAPRINE HCL 10 MG TABLET PO SCH (08:32)
[2017-02-09] MEDS: DANTROLENE SODIUM 100 MG PO SCH (08:32)
[2017-02-09] MEDS: PARoxetine HCL 20 MG TABLET PO SCH (08:32)
[2017-02-09] MEDS: DOCUSATE SODIUM 100 MG CAPSULE PO SCH (08:32)
[2017-02-09] MEDS: SULFAMETHOX/TRIMETH DS 800-160 MG/TABLET PO SCH (08:32)
[2017-02-09] MEDS: POLYETHYLENE GLYCOL 3350 17 GM PACKET PO SCH (08:32)
[2017-02-09] MEDS ORDERED: ASCORBIC ACID 500 MG TABLET PO SCH (09:00)
[2017-02-09] MEDS ORDERED: CALCIUM OYSTER SHELL 250 MG-VIT D3 125 UNITS TABLET PO SCH (09:00)
[2017-02-09] MEDS ORDERED: MUPIROCIN CALCIUM 2% 15 GM CREAM TP SCH (09:00)
[2017-02-09] MEDS ORDERED: ASCO500 PO (09:38)
[2017-02-09] MEDS ORDERED: SULF1TAB42 PO (09:41)
[2017-02-09] MEDS ORDERED: DIPH25 PO (09:42)
[2017-02-09] MEDS ORDERED: OS500 PO (09:44)
[2017-02-09] MEDS ORDERED: VITAD400 PO (09:47)
[2017-02-09] MEDS ORDERED: MULT1CAP32 PO (09:49)
[2017-02-09] MEDS ORDERED: MIRALAX PO (09:51)
[2017-02-09] MEDS ORDERED: SENN-30 PO (09:53)
[2017-02-09] MEDS ORDERED: MUPI15CR TP (09:57)
[2017-03-23] MEDS ORDERED: CALC-261 PO (11:10)
== END 2017-02-09 10:30 | disposition home health service (06) | DRG 57 ==
LOC: 2WR 19:00
PROVIDERS: ATTEND Physical Medicine & Rehabilitation
DX: I69.354 Hemiplegia and hemiparesis following cerebral infarction affecting left non-dominant side (principal); E44.0 Moderate protein-calorie malnutrition; M21.862 Other specified acquired deformities of left lower leg; J44.9 Chronic obstructive pulmonary disease, unspecified; F32.9 Major depressive disorder, single episode, unspecified; K59.00 Constipation, unspecified; M21.852 Other specified acquired deformities of left thigh; E03.9 Hypothyroidism, unspecified; F17.210 Nicotine dependence, cigarettes, uncomplicated; E78.5 Hyperlipidemia, unspecified; D64.9 Anemia, unspecified; Z79.899 Other long term (current) drug therapy; Z79.82 Long term (current) use of aspirin; I69.398 Other sequelae of cerebral infarction; Z79.01 Long term (current) use of anticoagulants; Z83.3 Family history of diabetes mellitus; Z80.3 Family history of malignant neoplasm of breast
CPT/HCPCS: 87081; 93971; 97110; 97112; 97116; 97163; 97166; 97530; 97535; 99366

== ENCOUNTER 2017-05-18 07:30 | Observation (INO) | payer MEDICARE, OTHER ==
[~2017-05-18] VITALS: Ht 185.4 cm; Wt 81.8 kg
[~2017-05-18 07:30] MED LIST changes: +ASCO500 PO; -BISA5TAB12 PO; +CALC-261 PO; -CYCL10 PO; +DIPH25 PO; -HYDR-309 PO; -MULT-492 PO; +MULT1CAP32 PO; -PERCT PO
[2017-05-23] MEDS ORDERED: PHENYLEPHRINE HCL 10 MG/ML VIAL IVP ONE (00:18)
[2017-05-23] MEDS ORDERED: PROPOFOL 1% 20 ML VIAL IVP ONE (00:18)
[2017-05-23] MEDS ORDERED: FentaNYL CITRATE-PF 100 MCG/2 ML VIAL IVP ONE (00:18)
[2017-05-23] MEDS ORDERED: EPINEPHrine 1:1,000 [1 MG/ML] AMP IM ONE (00:18)
[2017-05-23] MEDS ORDERED: LIDOCAINE HCL/PF 2% 5 ML VIAL IM ONE (00:18)
[2017-05-23] MEDS ORDERED: MORPHINE SULFATE 4 MG/ML SYRINGE IVP ONE (00:18)
[2017-05-23] MEDS ORDERED: OXYTOCIN 10 UNITS/ML VIAL IM ONE (00:18)
[2017-05-23] MEDS ORDERED: MIDAZOLAM HCL 2 MG/2 ML VIAL IVP ONE (00:18)
[2017-05-23] MEDS ORDERED: ROCURONIUM BROMIDE 10 MG/ML 5 ML VIAL IVP ONE (00:18)
[2017-05-23] MEDS ORDERED: DEXAMETHASONE SOD PHOS 4 MG/ML VIAL IVP ONE (00:18)
[2017-05-23] MEDS ORDERED: RINGERS SOLUTION,LACTATED 1,000 ML IV ONE ×3 (05:43→07:30)
[2017-05-23] MEDS ORDERED: CeFAZolin 2 GM/DEXTROSE 50 ML IV ONE ×2 (05:44→07:30)
[2017-05-23 06:41] LABS: BASOPHILS % (AUTO) 0.7 % (0.0-2.0); EOSINOPHILS % (AUTO) 2.1 % (1.0-6.0); HEMATOCRIT 45.5 % (41-53); HEMOGLOBIN 15.1 g/dL (13.5-17.5); LYMPHOCYTES # (AUTO) 1.8 K/uL (1.0-4.8); LYMPHOCYTES % (AUTO) 21.1 % (22.0-44.0); MEAN CORPUSCULAR HEMOGLOBIN 29.7 pg (26.0-34.0); MEAN CORPUSCULAR HGB CONC 33.2 G/dL (31.0-37.0); MEAN CORPUSCULAR VOLUME 89 fL (80-100); MONOCYTES # (AUTO) 0.9 K/uL (0.1-1.0); NEUTROPHILS # (AUTO) 5.5 K/uL (1.8-7.7); NEUTROPHILS % (AUTO) 65.1 % (40.0-70.0); PLATELET COUNT (AUTO) 286 K/uL (150-450); RED BLOOD CELL COUNT(AUTO) 5.09 MIL/uL (4.50-5.90); RED CELL DISTRIBUTION WIDTH 16.1 % (11.5-14.5); WHITE BLOOD COUNT (AUTO) 8.4 K/uL (4.5-11.0)
[2017-05-23 06:49] LABS: ANION GAP 9 mmol/L (8-16); CALCIUM, TOTAL 8.4 mg/dL (8.8-10.5); CARBON DIOXIDE 27 mmol/L (22-29); CHLORIDE 105 mmol/L (98-107); CREATININE 0.81 mg/dL (0.60-1.30); GLOMERULAR FILTR. RATE CALC > 60 mL/min (>60); POTASSIUM 4.1 mmol/L (3.5-5.1); PROTHROMBIN TIME 10.4 SEC (9.4-11.6); SODIUM SERUM 141 mmol/L (136-145); UREA NITROGEN, BLOOD 20 mg/dL (7-18)
[2017-05-23 06:55] LABS: ALANINE AMINOTRANSFERASE 20 U/L (12-78); ALBUMIN 3.4 g/dL (3.4-5.0); ASPARTATE AMINOTRANSFERASE 18 U/L (15-37); BILIRUBIN,TOTAL 0.3 mg/dL (0.1-1.0); TOTAL PROTEIN, SERUM 7.1 g/dL (6.4-8.2)
[2017-05-23] MEDS ORDERED: MUPIROCIN CALCIUM 2% 22 GM OINTMENT ONE (07:00)
[2017-05-23] MEDS ORDERED: GUM MASTIC/STORAX/MSAL/ALCOHOL LIQUID 0.67 ML VIAL TP ONE (07:00)
[2017-05-23] MEDS ORDERED: SODIUM CHLORIDE 0.9% 1,000 ML IV ONE (07:01)
[2017-05-23] MEDS ORDERED: MICROFIBRILLAR COLLAGEN 1 GM PACKAGE TP ONE (07:01)
[2017-05-23] MEDS ORDERED: BUPIVACAINE HCL/PF 0.5% 30 ML VIAL ONE (07:01)
[2017-05-23] MEDS ORDERED: VANCOMYCIN HCL 1 GM/VIAL ONE (07:01)
[2017-05-23] MEDS ORDERED: BUPIVACAINE LIPOSOME/PF 1.3%-13.3MG/ML SUSPENSION 10 ML VIAL INJ ONE (07:15)
[2017-05-23] MEDS ORDERED: HYDROmorphone 2 MG/ML SYRINGE IVP PRN (07:15)
[2017-05-23] MEDS ORDERED: FentaNYL CITRATE-PF 100 MCG/2 ML VIAL IVP PRN (07:15)
[2017-05-23] MEDS ORDERED: MEPERIDINE-PF 25 MG/ML SYRINGE IVP PRN (07:15)
[2017-05-23 12:45] VITALS: BP 110/68
[2017-05-23] MEDS ORDERED: ALBUTEROL SULFATE 2.5 MG/0.5 ML NEB SOLUTION NEB PRN (14:30)
[2017-05-23] MEDS ORDERED: MAGNESIUM HYDROXIDE SUSPENSION 30 ML UDCUP PO PRN (14:30)
[2017-05-23] MEDS ORDERED: MORPHINE SULFATE 2 MG/ML SYRINGE IVP PRN (14:30)
[2017-05-23] MEDS ORDERED: OxyCODONE HCL/ACETAMINOPHEN 5-325 MG TABLET PO PRN (14:30)
[2017-05-23] MEDS ORDERED: BISACODYL 10 MG RECTAL RECTAL SUPPOSITORY PR PRN (14:30)
[2017-05-23] MEDS ORDERED: LORazepam 2 MG/ML VIAL IVP PRN (14:30)
[2017-05-23] MEDS ORDERED: ONDANSETRON HCL 4 MG/2 ML VIAL IVP PRN (14:30)
[2017-05-23] MEDS: CeFAZolin 1 GM/DEXTROSE 50 ML IV SCH (15:17)
[2017-05-23] MEDS: HEPARIN SODIUM,PORCINE 5,000 UNITS/ML VIAL SQ SCH (15:22)
[2017-05-23 17:00] VITALS: BP_SYST 66
[2017-05-23] MEDS ORDERED: ATORVASTATIN CALCIUM 20 MG TABLET PO SCH (21:00)
[2017-05-23] MEDS: LevETIRAcetam 500 MG TABLET PO SCH (21:09)
[2017-05-23] MEDS: ACETAMINOPHEN 325 MG TABLET PO PRN (21:09)
[2017-05-23] MEDS: DOCUSATE SODIUM 100 MG CAPSULE PO SCH (21:09)
[2017-05-23 21:10] VITALS: BP 138/84
[2017-05-24] MEDS: CeFAZolin 1 GM/DEXTROSE 50 ML IV SCH (00:01)
[2017-05-24] MEDS: HEPARIN SODIUM,PORCINE 5,000 UNITS/ML VIAL SQ SCH ×2 (00:08→08:43)
[2017-05-24 02:00] VITALS: BP 128/72
[2017-05-24] MEDS: ACETAMINOPHEN 325 MG TABLET PO PRN ×2 (04:15→08:49)
[2017-05-24 05:01] VITALS: BP 127/72
[2017-05-24] MEDS ORDERED: SULF1TAB42 PO (05:01)
[2017-05-24 08:00] VITALS: BP 113/63
[2017-05-24] MEDS: DOCUSATE SODIUM 100 MG CAPSULE PO SCH (08:43)
[2017-05-24] MEDS: LevETIRAcetam 500 MG TABLET PO SCH (08:50)
[2017-05-24] MEDS ORDERED: PANTOPRAZOLE SODIUM 40 MG DR TABLET PO SCH (09:00)
[2017-05-24] MEDS ORDERED: ASPIRIN 81 MG CHEWABLE TABLET PO SCH (09:00)
[2017-05-24] MEDS ORDERED: BACTDSB PO (09:26)
== END 2017-05-24 13:00 | disposition home or self-care (01) ==
LOC: 4E 05-23 05:46 → OBSVTOIN 05-23 12:40 → INTOOBSV 05-23 12:40
PROVIDERS: ADMIT Orthopaedic Surgery; ATTEND Orthopaedic Surgery
DX: M21.942 Unspecified acquired deformity of hand, left hand (principal); G40.909 Epilepsy, unspecified, not intractable, without status epilepticus; E03.9 Hypothyroidism, unspecified; E78.00 Pure hypercholesterolemia, unspecified; F17.210 Nicotine dependence, cigarettes, uncomplicated; Z86.73 Personal history of transient ischemic attack (TIA), and cerebral infarction without residual deficits; Z87.820 Personal history of traumatic brain injury
CPT/HCPCS: 24105; 25020; 25085; 25280 ×7; 26040; 26478 ×4; 26593 ×4; 36415; 64708; 64719; 73110; 80053; 85025; 85610; 85730; 87070 ×2; 87077; 87081; 87186; 87205; 88304; 93005; 96365; 96372 ×2; 96375; C1713 ×3; C1768; G0378 ×2; J0171; J0690 ×2; J1100; J1644 ×2; J2250; J2270; J2370; J2590; J2704; J3010; J3370; J3490 ×3; J7030; J7120